=== PATIENT | male | born 1970 | race Caucasian/White ===

== ENCOUNTER 2019-12-04 13:02 | Emergency (ER) | payer SELFPAY ==
[~2019-12-04] VITALS: Ht 190.5 cm; Wt 104.0 kg
[2019-12-04] MEDS ORDERED: KETOROLAC 60MG/2ML VIAL IM ONE (14:15)
[2019-12-04 15:48] VITALS: BP 125/67
== END 2019-12-04 15:50 | disposition home or self-care (01) ==
LOC: ER 13:02
DX: M79.671 Pain in right foot (principal); Z98.890 Other specified postprocedural states
CPT/HCPCS: 73610; 73630; 96372; 99283; J1885; Z7610